=== PATIENT | male | born 1990 | race Caucasian/White ===

== ENCOUNTER 2022-03-22 11:18 | Emergency (ER) | payer OTHER, SELFPAY ==
[2022-03-22 11:50] VITALS: BP 108/64; PULSE 79; RESP 19; TEMP 37.1; O2SAT 100; BMI 20.2
--- NOTE | 2022-03-22 12:45 | HMH.EDUTC ---
[facility] Disposition Clinical Impression: Migraine Qualifiers: Migraine type: unspecified Status migrainosus presence: without status migrainosus Intractability: not intractable Qualified Code(s): G43.909 - Migraine, unspecified, not intractable, without status migrainosus Disposition: Home, Self-Care Condition on Discharge: Good Additional Instructions: Go home lay down and sleep off remainder of migraine headache Return if needed Straight to ER if any life threatening symptoms Follow up with your Family Doctor if no improvement or any worsening of symptoms Referrals: Yahir Shah MD [Primary Care Provider] - As needed Forms: Work/School Release Time of Disposition: 13:15 Medical Decision Making - Deandre Inquiry Pt receiving controlled substance: No Deandre was queried for this patient: No Vital Signs: 03/22/22 11:50 03/22/22 13:01 Temperature 98.8 F 98.8 F Temperature Source Oral Pulse Rate 79 Pulse Rate [Left Brachial] 79 Respiratory Rate 19 19 Blood Pressure 108/64 L Blood Pressure [Left Arm] 108/64 L Blood Pressure Mean [Left Arm] 78 Blood Pressure Source [Left Arm] Automatic Cuff Blood Pressure Position [Left Arm] Sitting 02 Sat by Pulse Oximetry 100 Oxygen Delivery Method Room Air Orders (Tests/Meds): ED MEDICATIONS Discontinued Medications Generic Name Dose Route Start Last Admin Trade Name Freq PRN Reason Stop Dose Admin Diphenhydramine HCl 25 mg 03/22/22 12:47 03/22/22 12:52 Diphenhydramine 50mg/Ml Vial IM 03/22/22 12:48 25 mg ONCE ONE Administration Ketorolac Tromethamine 60 mg 03/22/22 12:46 03/22/22 12:52 Ketorolac 60mg/2ml Vial IM 03/22/22 12:47 60 mg ONCE ONE Administration Metoclopramide HCl 10 mg 03/22/22 12:47 03/22/22 12:52 Metoclopramide 10mg Tablet PO 03/22/22 12:48 10 mg ONCE ONE Administration ORDERS Category Date Time Status Full Resp Panel w/COVID ([facility]) Routine Lab 03/22/22 12:42 Ordered Medical Decision Narrative: Patient states that migraine is much better now [facility] HPI - General Stated complaint: severe headache Time Seen by Provider: 03/22/22 12:45 Mode of Arrival: Ambulatory Source of Information: Patient Limitations: No Limitations Description of Symptoms (Recalled from Triage Doc. by RN): PATIENT C/O MIGRAINE SINCE LAST NIGHT HEENT Symptoms (Recalled from RN notes): Yes Resp Symptoms (Recalled from RN notes): No Skin Symptoms (Recalled from RN notes): No MS Symptoms (Recalled from RN notes): No Functional Status (Recalled from RN notes): WNL - History of Present Illness Provider Complaint: Patient states that he has a history of migraine headaches and last night he started with migraine and took some over the counter medication but didnt help it States that this morning his head was still hurting so he came in to get checked - Related Data Home Medications Medication Instructions Recorded Confirmed No Known Home Medications 04/11/19 10/31/19 Allergies Allergy/AdvReac Type Severity Reaction Status Date / Time Penicillins Allergy Verified 03/22/22 12:12 - Worker's Comp Is this a Worker's Comp case?: No [facility] History - Hepatitis A Screen Attestation statement:: This patient has been screened for Hepatitis A risk factors. I have reviewed the patient's past medical history: Yes Other Surgeries: Yes: No Previous Surgery - Social History Smoking Status: Current every day smoker Tobacco Type: cigarettes # Packs/Day (cigarettes): 1 Alcohol Intake: never Substance Use Type: denies use Occupational Status: other Housing: house Family Hx:: Non-contributory ROS Obtained: Yes All systems reviewed & no additional complaints, Yes Systems reviewed as appropriate & no additional complaints - Constitutional Constitutional: Reports system reviewed and no additional complaints, except as docu, Reports headache(s) - Eyes Eyes: Reports system reviewed and no additional complaints, excep
[2022-03-22 13:01] VITALS: BP 108/64; PULSE 79; RESP 19; TEMP 37.1; O2SAT 100
[2022-03-22 13:22] LABS: Adenovirus,PCR Not Detected (NotDetected); Bordetella Pertussis Not Detected (NotDetected); Chlamydophila Pneumoniae, PCR Not Detected (NotDetected); Coronavirus 229E Not Detected (NotDetected); Coronavirus NL63 Not Detected (NotDetected); Coronavirus OC43 Not Detected (NotDetected); Coronovirus HKU1,PCR Not Detected (NotDetected); Human Metapneumovirus Not Detected (NotDetected); Influenza A, PCR Not Detected (NotDetected); Influenza AH1, 2009 Not Detected (NotDetected); Influenza AH1, PCR Not Detected (NotDetected); Influenza AH3,PCR Not Detected (NotDetected); Influenza B, PCR Not Detected (NotDetected); Mycoplasma Pneumoniae, PCR Not Detected (NotDetected); Parainfluenza 1, PCR Not Detected (NotDetected); Parainfluenza 2, PCR Not Detected (NotDetected); Parainfluenza 3, PCR Not Detected (NotDetected); Parainfluenza 4, PCR Not Detected (NotDetected); Respiratory Syncytial Virus Not Detected (NotDetected); Rhinovirus/Enterovirus Not Detected (NotDetected)
[2022-03-22 14:56] LABS: Coronavirus 19, PCR Detected (NotDetected)
== END 2022-03-22 13:23 | disposition home or self-care (01) ==
PROVIDERS: Emergency Provider Nurse Practitioner; PCP Family Medicine
DX: G43.909 Migraine, unspecified, not intractable, without status migrainosus (principal)
CPT/HCPCS: 87581; 87632; 87798; 96372; 99212; C9803; G0463; U0003; U0005